=== PATIENT | male | born 1995 | race Caucasian/White ===

== ENCOUNTER 2024-10-08 20:15 | Emergency (ER) | payer SELFPAY ==
[~2024-10-08] VITALS: Ht 165.1 cm; Wt 82.4 kg
[~2024-10-08 20:15] MED LIST: CEPHALEXIN500 M2 PO; ZOFRAN ODT4 MG PO
[2024-10-08] MEDS ORDERED: Loperamide 2 MG CAP PO ONE (20:45)
[2024-10-08 21:05] LABS: BASO # 0.05 K/mm3 (0.02-0.10); EOS # 0.32 K/mm3 (0.04-0.40); EOS % 2.6 % (0.0-4.0); HEMATOCRIT 47.7 % (42.0-52.0); HEMOGLOBIN 16.2 g/dL (13.5-18.0); LYMPH# 3.34 K/mm3 (1.50-4.00); MEAN CELL VOLUME 91 fl (78-100); MEAN CORPUSCULAR HEMOGLOBIN 31 pg (27-31); MEAN CORPUSCULAR HGB CONC 34 g/dL (33-37); MEAN PLATELET VOLUME 9.3 fl (7.4-10.4); MONO # 0.78 K/mm3 (0.20-0.80); NEU # 7.96 K/mm3 (1.40-6.50); PLATELET COUNT 313 K/mm3 (130-400); RED BLOOD COUNT 5.27 M/mm3 (4.20-5.60); RED CELL DISTRIBUTION WIDTH 12.2 % (11.5-14.5); WHITE BLOOD COUNT 12.5 K/mm3 (4.8-10.8)
[2024-10-08 21:09] LABS: CALCIUM 9.1 mg/dL (8.3-10.5)
[2024-10-08 21:22] LABS: URINE APPEARANCE CLEAR (CLEAR); URINE COLOR YELLOW (YELLOW)
[2024-10-08 21:23] LABS: PH-URINE 5.5 (5.0 - 8.0); URINE BILIRUBIN NEGATIVE (NEGATIVE); URINE GLUCOSE NEGATIVE (NEGATIVE); URINE KETONE NEGATIVE (NEGATIVE); URINE PROTEIN(semi-quant) NEGATIVE (NEGATIVE)
[2024-10-08 21:24] LABS: URINE BLOOD 1+ (NEGATIVE); URINE LEUKOCYTE ESTERASE NEGATIVE (NEGATIVE); URINE NITRATE NEGATIVE (NEGATIVE); URINE WBC 0-1 /hpf (0-3)
[2024-10-08 23:03] VITALS: BP 153/99
== END 2024-10-08 23:13 | disposition home or self-care (01) ==
LOC: ED 20:15
PROVIDERS: Family Medicine
DX: R19.7 Diarrhea, unspecified (principal); U07.1 COVID-19; R11.0 Nausea
CPT/HCPCS: J7120

== ENCOUNTER 2024-10-12 16:16 | Emergency (ER) | payer SELFPAY ==
[~2024-10-12] VITALS: Ht 165.1 cm; Wt 82.4 kg
[2024-10-12 16:50] LABS: ALBUMIN 4.1 g/dL (3.5-5.0); BASO # 0.03 K/mm3 (0.02-0.10); EOS # 0.19 K/mm3 (0.04-0.40); EOS % 2.3 % (0.0-4.0); HEMOGLOBIN 15.1 g/dL (13.5-18.0); LYMPH# 2.23 K/mm3 (1.50-4.00); MEAN CELL VOLUME 92 fl (78-100); MEAN CORPUSCULAR HEMOGLOBIN 31 pg (27-31); MEAN CORPUSCULAR HGB CONC 34 g/dL (33-37); MONO # 0.45 K/mm3 (0.20-0.80); NEU # 5.44 K/mm3 (1.40-6.50); PLATELET COUNT 287 K/mm3 (130-400); RED BLOOD COUNT 4.89 M/mm3 (4.20-5.60); RED CELL DISTRIBUTION WIDTH 12.4 % (11.5-14.5); WHITE BLOOD COUNT 8.4 K/mm3 (4.8-10.8)
[2024-10-12 16:51] LABS: SODIUM 141 mmol/L (136-145)
[2024-10-12 16:52] LABS: CALCIUM 8.7 mg/dL (8.3-10.5)
[2024-10-12 16:53] LABS: GLUCOSE 161 mg/dL (75-110); TOTAL PROTEIN 7.2 g/dL (6.4-8.3)
[2024-10-12 16:54] LABS: CARBON DIOXIDE 24 mmol/L (22-29)
[2024-10-12 16:58] LABS: AST-SGOT 18 U/L (5-34)
[2024-10-12 16:59] LABS: ALT/SGPT 20 U/L (0-55); TOTAL BILIRUBIN 0.3 mg/dL (0.2-1.2)
[2024-10-12 17:06] LABS: TROPONIN-I < 0.030 ng/mL (0.00-0.033)
[2024-10-12 17:39] VITALS: BP 131/89
[2024-10-12 18:14] LABS: URINE APPEARANCE CLEAR (CLEAR); URINE BILIRUBIN NEGATIVE (NEGATIVE); URINE BLOOD TRACE-INTACT (NEGATIVE); URINE COLOR YELLOW (YELLOW); URINE GLUCOSE NEGATIVE (NEGATIVE); URINE KETONE NEGATIVE (NEGATIVE); URINE LEUKOCYTE ESTERASE NEGATIVE (NEGATIVE); URINE MUCUS PRESENT (NOT PRESENT); URINE NITRATE NEGATIVE (NEGATIVE); URINE PROTEIN(semi-quant) NEGATIVE (NEGATIVE); URINE WBC 0-1 /hpf (0-3)
== END 2024-10-12 17:45 | disposition home or self-care (01) ==
LOC: ED 16:16
PROVIDERS: Family Medicine
DX: R00.2 Palpitations (principal); Z86.16 Personal history of COVID-19

== ENCOUNTER 2024-10-27 18:26 | Emergency (ER) | payer OTHER ==
[~2024-10-27] VITALS: Ht 165.1 cm; Wt 79.5 kg
[2024-10-27] MEDS ORDERED: NS 1,000 ML IV ONE (18:45)
[2024-10-27 19:00] LABS: BASO # 0.05 K/mm3 (0.02-0.10); EOS # 0.27 K/mm3 (0.04-0.40); EOS % 2.4 % (0.0-4.0); HEMATOCRIT 47.8 % (42.0-52.0); HEMOGLOBIN 16.3 g/dL (13.5-18.0); LYMPH# 2.56 K/mm3 (1.50-4.00); MEAN CELL VOLUME 91 fl (78-100); MEAN CORPUSCULAR HEMOGLOBIN 31 pg (27-31); MEAN CORPUSCULAR HGB CONC 34 g/dL (33-37); MEAN PLATELET VOLUME 9.3 fl (7.4-10.4); MONO # 0.73 K/mm3 (0.20-0.80); NEU # 7.38 K/mm3 (1.40-6.50); PLATELET COUNT 254 K/mm3 (130-400); RED BLOOD COUNT 5.24 M/mm3 (4.20-5.60); RED CELL DISTRIBUTION WIDTH 12.4 % (11.5-14.5)
[2024-10-27 19:07] LABS: ALBUMIN 4.4 g/dL (3.5-5.0)
[2024-10-27] MEDS ORDERED: NS 100 ML IV SCH (19:08)
[2024-10-27 19:09] LABS: CALCIUM 9.4 mg/dL (8.3-10.5)
[2024-10-27] MEDS ORDERED: Iohexol 300 - 100 ML VIAL IV ONE (19:09)
[2024-10-27 19:10] LABS: TOTAL PROTEIN 7.8 g/dL (6.4-8.3)
[2024-10-27 19:12] LABS: TOTAL BILIRUBIN 0.3 mg/dL (0.2-1.2)
[2024-10-27 20:40] VITALS: BP 145/87
== END 2024-10-27 20:51 | disposition home or self-care (01) ==
LOC: ED 18:26
PROVIDERS: Family Medicine
DX: R19.7 Diarrhea, unspecified (principal); D72.829 Elevated white blood cell count, unspecified; Z86.16 Personal history of COVID-19
CPT/HCPCS: J7030; Q9967